=== PATIENT | female | born 1980 | race Caucasian/White ===

== ENCOUNTER → 2017-06-05 | Day surgery (SDC) | payer MEDICAID ==
--- NOTE | 2017-05-29 08:07 | MH ---
cc: KIKA PRADO DATE OF ADMISSION: 06/05/2017 REASON FOR ADMISSION Hysteroscopy, D&C and ablation on the . This patient is an 36-year-old white female. She is a 3, para 3 being admitted to [facility] for ablation for hypermenorrhea. HISTORY OF PRESENT ILLNESS The patient is well-known to our practice. She had been seen complaining of abnormally heavy bleeding and she underwent endometrial sampling which showed benign curettings. She also had an ultrasound scan examination which revealed a normal-sized endometrium. visit therapy were given. She was offered hormonal therapy, however, she is a heavy smoker and smokes at least a half a pack a day. Medical history significant in that the patient has multiple medical problems including a spinal radiculopathy. She has a large amount of allergies for she is on Flonase nasal spray. She is hydrocodone for her radiculopathy. ALLERGIES CEPHALEXIN PAST SURGICAL HISTORY 1. Sinus surgery 2. Hernia repair 3. Surgery for disk disease. FAMILY HISTORY The mother has lupus and father has pancreatic cancer. SOCIAL HISTORY She denies any history of substance abuse or alcohol use but does admit to smoking. PHYSICAL EXAMINATION GENERAL: The patient is seen well-developed, well-nourished in no acute distress. VITAL SIGNS: Blood pressure was 102/80, pulse 70, respirations are 12. HEENT: Negative. CHEST: Clear to auscultation. CARDIOVASCULAR: Revealed regular rate. ABDOMEN: Soft. Bowel sounds were positive. PELVIC: Uterus normal size. There were no adnexal masses palpable. External genitalia was within normal limits. EXTREMITIES: No cyanosis, clubbing or edema. NEUROPSYCHIATRIC: The patient is oriented times three and showed no gross neural cranial deficit. IMPRESSION Hypermenorrhea. The patient is not a candidate for hormonal therapy. PLAN Endometrial ablation, hysteroscopy and D&C. MD ELLYN Atkins/ /3:45 PM /9:11 AM
[~2017-06-05] MED LIST: BECL80AE3 INH; CLAR10CA3 PO; CLAR250T PO; CLINDAMYCIN PHOS 900 MG/6 ML VIAL ONE; CYMB60CA PO; FLUT1SPR5 EACH NARE; HYDR-3580 PO; HYDR200T3 PO; LACTATED RINGER'S 1000 ML INJ 1,000 ML ONE; METH8TAB3 PO; MIDAZOLAM HCL 2 MG/2 ML VIAL ONE; ONDANSETRON HCL 4 MG/2 ML VIAL IV PUSH ONE; PRED1SUS LEFT EYE; PROPOFOL 200 MG/20 ML AMP IV ONE; SODIUM CHLORIDE 0.9% SOLN 100 ML BAG IV ONE; SULF1TAB23 PO; oxyCODONE/ACETAMINOPHEN 5 MG/325 MG TAB ONE
--- NOTE | 2017-06-05 08:40 | MP ---
cc: JUANJOSE TREVINO MD DATE OF SURGERY: 06/05/2017 PREOPERATIVE DIAGNOSIS Hypermenorrhea. POSTOPERATIVE DIAGNOSIS Hypermenorrhea. OPERATION Cervical polypectomy, D&C, endometrial ablation and hysteroscopy. SURGEON Dr. Juanjose Trevino. TEACHING MANAGER None. COMPLICATIONS None. SPECIMENS REMOVED Cervical polyp and endometrial curettings. ESTIMATED BLOOD LOSS Minimal. ANESTHESIA General. PROCEDURE The patient was prepped and draped in the dorsal lithotomy position. A weighted speculum was placed in the posterior vaginal vault. The anterior lip of the cervix was grasped with a single-tooth tenaculum. There was a polyp at the cervical os and this was removed using cervical polypectomy forceps, after which the cervix was dilated using Madan dilators. A sharp curetting instrument was then introduced in the endometrial cavity. Curettings were taken and these were then sent to pathology. Next, the endometrial unit was inserted in the endometrial cavity. This was a NovaSure unit. The dimensions of the cavity were recorded and the ablation unit was turned on for approximately a minute after which the unit was withdrawn. The hysteroscope was then reinserted in the endometrial cavity to make sure that all quadrants of the endometrium had been ablated and it was. This was then removed as was the tenaculum and speculum and the patient returned to the recovery room in stable condition. Juanjose Trevino MD JSG/BT /7:57 AM /8:31 AM
== END | disposition home or self-care (01) ==
LOC: ESDC 06:24
PROVIDERS: ATTEND Obstetrics & Gynecology
DX: N92.0 Excessive and frequent menstruation with regular cycle (principal); N84.1 Polyp of cervix uteri
CPT/HCPCS: 00952; 58563; 88305; J2250; J2405; J3010; J7120